=== PATIENT | female | born 1935 | race Caucasian/White ===

== ENCOUNTER → 2023-01-26 | Day surgery (SDC) | payer MEDICARE ==
[2023-01-24 13:40] VITALS: BMI 24.3
[~2023-01-26] MED LIST: PROPOFOL 200 MG/20 ML VIAL ONE
[2023-01-26 07:05] LABS: #Eosinphils 0.3 thou/uL (0.0-0.7); #Monocytes 0.7 thou/uL (0.11-0.59); %Basophils 0.6 % (0.0-1.0); %Eosinophils 4.7 % (0.0-10.0); %Lymphocytes 25.3 % (21.0-51.0); %Monocytes 10.5 % (0.0-10.0); %Neutrophils 58.8 % (42.0-75.0); Hematocrit 35.1 % (36.0-47.0); Mean Corpuscular HGB CONC 31.3 g/dL (32.0-36.0); Mean Corpuscular Hemoglobin 28.1 pg (27.0-31.0); Mean Corpuscular Volume 89.5 fl (78.0-98.0); Mean Platelet Volume 10.6 fL (7.4-10.4); Platelet Count 205 10x3/uL (130-400); RBC Distribution Width 18.2 % (11.5-14.5); Red Blood Cell (RBC) Count 3.92 mill/uL (4.20-5.40); White Blood Cell (WBC) Count 6.8 10x3/uL (4.8-10.8)
[2023-01-26 07:24] LABS: Anion Gap 12 mmol/L (10-20); BUN (Urea Nitrogen) 22 mg/dL (9.8-20.1); Calc. Creatinine Clearance 36 mL/min (70-130); Calcium 8.8 mg/dL (7.8-10.44); Carbon Dioxide 24 mmol/L (23-31); Chloride 107 mmol/L (98-107); Estimated GFR 47; Glucose 93 mg/dL (83-110); Potassium 3.9 mmol/L (3.5-5.1); Sodium 139 mmol/L (136-145)
== END ==
LOC: SDC 06:18
PROVIDERS: ATTEND Internal Medicine Cardiovascular Disease
DX: I48.91 Unspecified atrial fibrillation (principal); I08.3 Combined rheumatic disorders of mitral, aortic and tricuspid valves; I10 Essential (primary) hypertension; E78.2 Mixed hyperlipidemia; E03.9 Hypothyroidism, unspecified; Z79.890 Hormone replacement therapy; Z79.899 Other long term (current) drug therapy; Z95.0 Presence of cardiac pacemaker
CPT/HCPCS: 36415; 80048; 85025; 92960; 93005; 93010; 93312; J2704

== ENCOUNTER 2023-01-28 16:52 | Inpatient (IN) | payer MEDICARE ==
[2023-01-28 17:16] LABS: #Eosinphils 0.2 thou/uL (0.0-0.7); #Monocytes 0.9 thou/uL (0.11-0.59); #Neutrophils 6.7 thou/uL (1.40-6.50); %Basophils 0.2 % (0.0-1.0); %Eosinophils 2.4 % (0.0-10.0); %Lymphocytes 18.4 % (21.0-51.0); %Monocytes 8.8 % (0.0-10.0); %Neutrophils 69.9 % (42.0-75.0); Hematocrit 34.2 % (36.0-47.0); Hemoglobin 10.8 g/dL (12.0-16.0); Mean Corpuscular HGB CONC 31.6 g/dL (32.0-36.0); Mean Corpuscular Hemoglobin 27.8 pg (27.0-31.0); Mean Corpuscular Volume 87.9 fl (78.0-98.0); Mean Platelet Volume 10.6 fL (7.4-10.4); Platelet Count 222 10x3/uL (130-400); RBC Distribution Width 18.1 % (11.5-14.5); Red Blood Cell (RBC) Count 3.89 mill/uL (4.20-5.40); White Blood Cell (WBC) Count 9.6 10x3/uL (4.8-10.8)
[2023-01-28 17:42] LABS: ALT (SGPT) 50 U/L (8-55); AST (SGOT) 57 U/L (5-34); Alkaline Phosphatase 111 U/L (40-110); Anion Gap 14 mmol/L (10-20); BUN (Urea Nitrogen) 20 mg/dL (9.8-20.1); Bilirubin, Total 0.5 mg/dL (0.2-1.2); Calc. Creatinine Clearance 0 mL/min (70-130); Calcium 8.9 mg/dL (7.8-10.44); Carbon Dioxide 23 mmol/L (23-31); Chloride 107 mmol/L (98-107); Estimated GFR 54; Globulin 3.4 g/dL (2.4-3.5); Glucose 125 mg/dL (83-110); Potassium 4.2 mmol/L (3.5-5.1); Protein, Total 7.4 g/dL (5.8-8.1); Sodium 140 mmol/L (136-145)
[2023-01-28 17:46] LABS: Troponin I Less than 0.010 ng/mL (< 0.028)
[2023-01-28] MEDS ORDERED: Nitroglycerin 2% Ointment 1 INCH/1 GM Packet ONE (19:28)
[2023-01-28] MEDS ORDERED: Furosemide 40 MG/4 ML VIAL ONE (19:28)
[2023-01-28] MEDS ORDERED: Acetaminophen 650 MG Suppository PR PRN (20:16)
[2023-01-28] MEDS ORDERED: Acetaminophen 325 MG TAB PO PRN (20:16)
[2023-01-28] MEDS ORDERED: Ondansetron ODT 4 MG TAB PO PRN (20:16)
[2023-01-28] MEDS ORDERED: Ondansetron PF 4 MG/2 ML Vial IVP PRN (20:16)
[2023-01-28] MEDS ORDERED: hydrALAZINE 20 MG/ML VIAL SLOW IVP PRN (20:20)
[2023-01-28] MEDS ORDERED: Electrolyte Replacement Protocol 1 EACH FS PRN (21:00)
[2023-01-28] MEDS ORDERED: Ipratropium/Albuterol 3 ML NEB NEB PRN (21:29)
[2023-01-28 21:58] LABS: Troponin I 0.082 ng/mL (< 0.028)
[2023-01-28] MEDS ORDERED: Magnesium 2 GM/50 ML(in water) 2 GM in Premix Bag 1 BAG IVPB SCH (23:00)
[2023-01-29] MEDS: levETIRAcetam 500 MG/5 ML VIAL SLOW IVP SCH ×3 (00:03→20:12)
[2023-01-29 01:46] LABS: Troponin I 0.144 ng/mL (< 0.028)
[2023-01-29 02:12] VITALS: BMI 25.0
[2023-01-29 03:37] LABS: #Monocytes 0.9 thou/uL (0.11-0.59); #Neutrophils 7.3 thou/uL (1.40-6.50); %Basophils 0.4 % (0.0-1.0); %Eosinophils 0.2 % (0.0-10.0); %Lymphocytes 18.5 % (21.0-51.0); %Monocytes 9.1 % (0.0-10.0); %Neutrophils 71.6 % (42.0-75.0); Hematocrit 33.4 % (36.0-47.0); Hemoglobin 10.3 g/dL (12.0-16.0); Mean Corpuscular HGB CONC 30.8 g/dL (32.0-36.0); Mean Corpuscular Hemoglobin 27.6 pg (27.0-31.0); Mean Corpuscular Volume 89.5 fl (78.0-98.0); Mean Platelet Volume 11.1 fL (7.4-10.4); Platelet Count 202 10x3/uL (130-400); RBC Distribution Width 17.9 % (11.5-14.5); Red Blood Cell (RBC) Count 3.73 mill/uL (4.20-5.40); White Blood Cell (WBC) Count 10.3 10x3/uL (4.8-10.8)
[2023-01-29 03:58] LABS: Anion Gap 15 mmol/L (10-20); BUN (Urea Nitrogen) 16 mg/dL (9.8-20.1); Calc. Creatinine Clearance 42 mL/min (70-130); Calcium 8.4 mg/dL (7.8-10.44); Carbon Dioxide 22 mmol/L (23-31); Chloride 103 mmol/L (98-107); Estimated GFR 56; Glucose 117 mg/dL (83-110); Magnesium 2.6 mg/dL (1.6-2.6); Potassium 3.3 mmol/L (3.5-5.1); Sodium 137 mmol/L (136-145)
[2023-01-29] MEDS: Potassium Chloride 20 MEQ in Premix Bag 1 BAG IVPB SCH ×2 (04:22→09:35)
[2023-01-29] MEDS ORDERED: Electrolyte Replacement Protocol 1 EACH FS SCH (07:00)
[2023-01-29] MEDS ORDERED: Furosemide 40 MG/4 ML VIAL SLOW IVP SCH (09:00)
[2023-01-29] MEDS: Furosemide 20 MG TAB PO SCH (09:32)
[2023-01-29] MEDS: Famotidine/PF 20 mg/2ml Vial SLOW IVP SCH (09:32)
[2023-01-29] MEDS: Gabapentin 300 MG CAP PO SCH ×3 (09:32→20:06)
[2023-01-29] MEDS: Escitalopram Oxalate 20 mg Tablet PO SCH (09:33)
[2023-01-29] MEDS: Rosuvastatin 20 MG TAB PO SCH (09:33)
[2023-01-29] MEDS: levETIRAcetam 500 MG TAB PO SCH ×2 (09:33→20:06)
[2023-01-29] MEDS: Levothyroxine Sodium 100 MCG TAB PO SCH (09:33)
[2023-01-29] MEDS: Amiodarone 200 MG TAB PO SCH ×2 (09:33→20:06)
[2023-01-29] MEDS ORDERED: Electrolyte Replacement Protocol FS PRN (14:45)
[2023-01-30 00:29] VITALS: TEMP 98.3
[2023-01-30] MEDS: Levothyroxine Sodium 100 MCG TAB PO SCH (06:21)
[2023-01-30] MEDS ORDERED: Potassium Chloride 10 MEQ TAB PO SCH (08:00)
[2023-01-30] MEDS: Gabapentin 300 MG CAP PO SCH (09:33)
[2023-01-30] MEDS: levETIRAcetam 500 MG TAB PO SCH (09:33)
[2023-01-30] MEDS: Escitalopram Oxalate 20 mg Tablet PO SCH (09:33)
[2023-01-30] MEDS: Famotidine/PF 20 mg/2ml Vial SLOW IVP SCH (09:33)
[2023-01-30] MEDS: Amiodarone 200 MG TAB PO SCH (09:33)
[2023-01-30] MEDS: Furosemide 20 MG TAB PO SCH (09:33)
[2023-01-30] MEDS: Rosuvastatin 20 MG TAB PO SCH (09:33)
[2023-01-30] MEDS: levETIRAcetam 500 MG/5 ML VIAL SLOW IVP SCH (09:36)
[2023-01-30 13:08] VITALS: BP 133/70
== END 2023-01-30 14:08 | disposition home or self-care (01) | DRG 291 ==
LOC: ERS 16:52 → IMCU/EMU 19:59
PROVIDERS: ADMIT Student in an Organized Health Care Education/Training Program; ATTEND Emergency Medicine
DX: I11.0 Hypertensive heart disease with heart failure (principal); I50.33 Acute on chronic diastolic (congestive) heart failure; J96.01 Acute respiratory failure with hypoxia; I16.1 Hypertensive emergency; E78.00 Pure hypercholesterolemia, unspecified; I5A Non-ischemic myocardial injury (non-traumatic); I48.91 Unspecified atrial fibrillation; G40.909 Epilepsy, unspecified, not intractable, without status epilepticus; Z98.890 Other specified postprocedural states; Z79.899 Other long term (current) drug therapy; Z90.710 Acquired absence of both cervix and uterus; Z95.0 Presence of cardiac pacemaker; Z79.01 Long term (current) use of anticoagulants; D64.9 Anemia, unspecified; I34.0 Nonrheumatic mitral (valve) insufficiency; Z82.49 Family history of ischemic heart disease and other diseases of the circulatory system; I49.5 Sick sinus syndrome; G62.9 Polyneuropathy, unspecified
CPT/HCPCS: 36415; 71045; 80048; 80053; 83735; 83880; 84484; 85025; 93005; 93798; 94660; 96374; J1650; J1940; J1953; J3475; J3480; S0028